=== PATIENT | female | born 1940 | race African-American/Black ===

== ENCOUNTER 2020-02-24 08:51 | Emergency (ER) | payer OTHER ==
[~2020-02-24] VITALS: Ht 165.1 cm; Wt 91.0 kg
[2020-02-24] MEDS ORDERED: MECLIZINE 25MG TABLET PO ONE ×2 (09:15→11:45)
[2020-02-24] MEDS ORDERED: SODIUM CHLORIDE 0.9% 1,000 ML IV ONE (09:15)
[2020-02-24 11:13] LABS: BASOPHILS % 0.9 % (0.0-2.0); HEMATOCRIT. 34.4 % (36.0-48.0); HEMOGLOBIN. 11.3 g/dL (12.0-16.0); LYMPHOCYTES % 21.6 % (20.0-50.0); MEAN CORPUSCULAR HEMOGLOBIN 27.5 pg (28.0-32.0); MEAN CORPUSCULAR VOLUME 83.7 fL (81.0-99.0); MONOCYTES % 6.6 % (2.0-8.0); NEUTROPHILS % 66.9 % (40.0-76.0); PLATELET 185 x1000/uL (130-400); RED BLOOD CELL COUNT 4.11 mill/uL (4.2-5.4); RED CELL DISTRIBUTION WIDTH 14.3 % (11.6-14.6)
[2020-02-24 11:16] LABS: CHLORIDE 102 mEq/L (98-107)
[2020-02-24 11:20] LABS: PROTHROMBIN TIME 10.4 sec (9.6-11.0)
[2020-02-24] MEDS ORDERED: ASPIRIN 325MG EC TABLET PO ONE (11:45)
[2020-02-24] MEDS ORDERED: LORAZEPAM 1MG TABLET PO ONE (12:15)
[2020-02-24 13:05] VITALS: BP 169/75
== END 2020-02-24 13:51 | disposition short-term general hospital (02) ==
LOC: ER 08:51
DX: E11.9 Type 2 diabetes mellitus without complications (principal); I10 Essential (primary) hypertension; Z88.0 Allergy status to penicillin; Z88.1 Allergy status to other antibiotic agents; Z88.3 Allergy status to other anti-infective agents; Z88.6 Allergy status to analgesic agent; Z88.8 Allergy status to other drugs, medicaments and biological substances
CPT/HCPCS: 36415; 70450; 71045; 80053; 85025; 85610; 93005; 96360; 99285; J7030; J8597

== ENCOUNTER 2022-09-18 20:26 | Emergency (ER) | payer OTHER ==
[~2022-09-18] VITALS: Ht 170.2 cm; Wt 87.0 kg
[2022-09-18 20:29] VITALS: O2SAT 100
[2022-09-18 21:00] VITALS: TEMP 98.6
[2022-09-18 22:04] LABS: CLARITY URINE CLEAR (CLEAR); COLOR URINE YELLOW (YELLOW); KETONES URINE NEGATIVE (NEGATIVE); LEUKOCYTE ESTERASE URINE 3+ (NEGATIVE); NITRITE URINE POSITIVE (NEGATIVE); OCCULT BLOOD URINE NEGATIVE (NEGATIVE); PH URINE 5.5 (4.5-8.0); PROTEIN URINE NEGATIVE (NEGATIVE); SPECIFIC GRAVITY URINE 1.008 (1.005-1.030); UROBILINOGEN URINE 0.2 E.U./dL (0.2-1.0)
[2022-09-18 22:38] LABS: EOSINOPHILS % 4.1 % (0.0-5.0); HEMATOCRIT. 32.5 % (36.0-48.0); HEMOGLOBIN. 10.5 g/dL (12.0-16.0); LYMPHOCYTES % 25.1 % (20.0-50.0); MEAN CORPUSCULAR HEMOGLOBIN 26.8 pg (28.0-32.0); MEAN CORPUSCULAR VOLUME 82.7 fL (81.0-99.0); MEAN PLATELET VOLUME 11.3 fl (7.4-10.4); NEUTROPHILS % 62.8 % (40.0-76.0); PLATELET 194 x1000/uL (130-400); RED BLOOD CELL COUNT 3.92 mill/uL (4.2-5.4)
[2022-09-18] MEDS ORDERED: ACETAMINOPHEN 325MG TABLET PO ONE (22:45)
[2022-09-18] MEDS ORDERED: NITROFURANTOIN 100MG M/M CAPSULE PO NR (22:45)
[2022-09-18] MEDS ORDERED: PHENAZOPYRIDINE HCL 100MG TABLET PO ONE (22:45)
[2022-09-18] MEDS ORDERED: NITROFURANTOIN MACROCRYSTAL 25MG CAPSULE PO ONE (22:45)
[2022-09-18 22:48] LABS: CHLORIDE 98 mEq/L (98-107)
[2022-09-18 22:50] LABS: PROTHROMBIN TIME 10.3 sec (9.6-11.0)
[2022-09-19] MEDS ORDERED: NITR100C MT (00:16)
[2022-09-19] MEDS ORDERED: PHEN-815 MT (00:16)
[2022-09-19] MEDS ORDERED: AMLODIPINE 10MG TABLET PO ONE (02:30)
[2022-09-19 02:35] VITALS: BP 191/71; PULSE 85; RESP 18
== END 2022-09-19 02:35 | disposition home or self-care (01) ==
LOC: ER 20:26
DX: N39.0 Urinary tract infection, site not specified (principal); E11.9 Type 2 diabetes mellitus without complications; E78.00 Pure hypercholesterolemia, unspecified; I95.9 Hypotension, unspecified
CPT/HCPCS: 36415; 80053; 81003; 84484; 85025; 87077; 87186; 99284

== ENCOUNTER 2022-09-20 11:35 | Emergency (ER) | payer OTHER ==
[~2022-09-20] VITALS: Ht 165.1 cm; Wt 73.0 kg
[~2022-09-20 11:35] MED LIST: NITR100C MT; PHEN-815 MT
[2022-09-20 11:38] VITALS: O2SAT 99
[2022-09-20] MEDS ORDERED: LEVOFLOXACIN 750MG PREMIX 150 ML IV ONE (12:15)
[2022-09-20 13:16] LABS: BASOPHILS % 0.5 % (0.0-2.0); EOSINOPHILS % 5.8 % (0.0-5.0); HEMATOCRIT. 33.8 % (36.0-48.0); HEMOGLOBIN. 10.6 g/dL (12.0-16.0); LYMPHOCYTES % 14.5 % (20.0-50.0); MEAN CORPUSCULAR HEMOGLOBIN 26.4 pg (28.0-32.0); MEAN CORPUSCULAR VOLUME 84.1 fL (81.0-99.0); MONOCYTES % 6.4 % (2.0-8.0); NEUTROPHILS % 72.8 % (40.0-76.0); RED BLOOD CELL COUNT 4.01 mill/uL (4.2-5.4); RED CELL DISTRIBUTION WIDTH 14.9 % (11.6-14.6)
[2022-09-20 13:19] LABS: CHLORIDE 99 mEq/L (98-107)
[2022-09-20 13:55] LABS: PLATELET 169 x1000/uL (130-400)
[2022-09-20] MEDS ORDERED: SODIUM CHLORIDE 0.9% 1000ML BAG (SEPSIS BOLUS) IV ONE (14:00)
[2022-09-20] MEDS ORDERED: VANCOMYCIN 1G PREMIX 200 ML IV SCH (14:00)
[2022-09-20] MEDS ORDERED: KETOROLAC 15MG/ML VIAL IV ONE ×2 (15:00→16:00)
[2022-09-20] MEDS ORDERED: ONDANSETRON HCL 4MG/2ML INJ IV ONE (16:00)
[2022-09-20 17:41] VITALS: BP 138/55; PULSE 61; RESP 14; TEMP 98
== END 2022-09-20 18:18 | disposition short-term general hospital (02) ==
LOC: ER 11:40
DX: N30.00 Acute cystitis without hematuria (principal); R78.81 Bacteremia; E11.9 Type 2 diabetes mellitus without complications; E78.00 Pure hypercholesterolemia, unspecified; I95.9 Hypotension, unspecified; Z87.440 Personal history of urinary (tract) infections
CPT/HCPCS: 99285; 96365; 96375; 96367; 80053; 83605; 85025; 87040; 36415; 93005; 96376; J1885; J2405; J3370; J1956; J7030

== ENCOUNTER 2022-09-22 19:37 | Inpatient (IN) | payer OTHER ==
[~2022-09-22] VITALS: Ht 139.7 cm; Wt 101.6 kg
[2022-09-22 23:42] LABS: CHLORIDE 98 mEq/L (98-107)
[2022-09-22 23:48] LABS: BASOPHILS % 0.7 % (0.0-2.0); EOSINOPHILS % 8.5 % (0.0-5.0); HEMATOCRIT. 32.7 % (36.0-48.0); HEMOGLOBIN. 10.5 g/dL (12.0-16.0); LYMPHOCYTES % 16.2 % (20.0-50.0); MEAN CORPUSCULAR HEMOGLOBIN 26.9 pg (28.0-32.0); MEAN CORPUSCULAR VOLUME 83.4 fL (81.0-99.0); MEAN PLATELET VOLUME 11.4 fl (7.4-10.4); MONOCYTES % 7.9 % (2.0-8.0); NEUTROPHILS % 66.7 % (40.0-76.0); PLATELET 180 x1000/uL (130-400); RED BLOOD CELL COUNT 3.92 mill/uL (4.2-5.4); RED CELL DISTRIBUTION WIDTH 15.2 % (11.6-14.6)
[2022-09-22 23:49] LABS: PROTHROMBIN TIME 10.3 sec (9.6-11.0)
[2022-09-23] MEDS ORDERED: HYDROCODONE/ACETAMINOPHEN 5/325MG TABLET PO ONE (00:30)
[2022-09-23 01:17] LABS: CLARITY URINE CLEAR (CLEAR); COLOR URINE DARK YELLOW (YELLOW); KETONES URINE NEGATIVE (NEGATIVE); LEUKOCYTE ESTERASE URINE 1+ (NEGATIVE); NITRITE URINE POSITIVE (NEGATIVE); OCCULT BLOOD URINE NEGATIVE (NEGATIVE); PH URINE 6.5 (4.5-8.0); PROTEIN URINE NEGATIVE (NEGATIVE); SPECIFIC GRAVITY URINE 1.009 (1.005-1.030)
[2022-09-23] MEDS ORDERED: ONDANSETRON HCL 4MG/2ML INJ IV ONE (02:00)
[2022-09-23] MEDS ORDERED: MAGNESIUM/ALUMINUM HYDROXIDE/SIMETHICONE 30ML UDC PO PRN (06:15)
[2022-09-23] MEDS ORDERED: GUAIFENESIN 200MG/10ML SUGAR FREE UDC PO PRN (06:15)
[2022-09-23] MEDS ORDERED: DEXTROSE 50% WATER 50ML SYRINGE IV PRN (06:15)
[2022-09-23] MEDS ORDERED: ONDANSETRON HCL 4MG/2ML INJ IV PRN (06:15)
[2022-09-23] MEDS ORDERED: IPRATROPIUM/ALBUTEROL 0.5-3(2.5)MG/3ML NEB HHN PRN (06:15)
[2022-09-23] MEDS ORDERED: DOCUSATE SODIUM 100MG CAPSULE PO PRN (06:15)
[2022-09-23] MEDS ORDERED: CLONIDINE 0.1MG TABLET PO PRN (06:15)
[2022-09-23] MEDS ORDERED: HYDRALAZINE 20MG/ML VIAL IV PRN (07:00)
[2022-09-23] MEDS: DIPHENHYDRAMINE 50MG/ML VIAL IV PRN ×2 (07:08→17:38)
[2022-09-23] MEDS: DEXT 5%/0.9% NACL 1,000 ML IV SCH ×2 (07:08→17:42)
[2022-09-23 07:47] LABS: TOTAL IRON BINDING CAPACITY 385 ug/dL (250-450)
[2022-09-23] MEDS: INSULIN LISPRO 100 UNITS/ML SUBCUT SCH ×4 (08:20→21:08)
[2022-09-23 08:44] LABS: FOLIC ACID (FOLATE) SERUM 13.5 ng/mL (>5.38)
[2022-09-23] MEDS: BLOOD SUGAR DIAGNOSTIC STRIP TEST SCH ×3 (09:17→21:00)
[2022-09-23] MEDS: NITROFURANTOIN 100MG M/M CAPSULE PO SCH ×2 (09:17→21:04)
[2022-09-23] MEDS: AMLODIPINE 5MG TABLET PO SCH (09:17)
[2022-09-23] MEDS: ENOXAPARIN 30MG/0.3ML SYR SUBCUT SCH ×2 (09:18→21:04)
[2022-09-23] MEDS ORDERED: LEVOFLOXACIN 750MG PREMIX 150 ML IV ONE (11:15)
[2022-09-23 12:00] VITALS: BP 145/62; PULSE 59; RESP 18; TEMP 97.5; TEMP 97.6
[2022-09-23] MEDS: PHENAZOPYRIDINE HCL 100MG TABLET PO SCH ×2 (12:07→17:10)
[2022-09-23] MEDS: HYDROCODONE/ACETAMINOPHEN 5/325MG TABLET PO PRN (12:19)
[2022-09-23] MEDS ORDERED: ATOR10TA PO (14:12)
[2022-09-23 16:00] VITALS: BP 139/69; PULSE 58; RESP 18; TEMP 98.6
[2022-09-23] MEDS ORDERED: NALOXONE HCL 0.4MG/ML VIAL IV PRN (17:45)
[2022-09-23 20:00] VITALS: BP 98/55; PULSE 64; RESP 20; TEMP 97.7
[2022-09-24] VITALS: BP 126/60; PULSE 65; RESP 19; TEMP 97.5
[2022-09-24 04:00] VITALS: BP 108/52; PULSE 67; RESP 18; TEMP 97.2
[2022-09-24] MEDS: DEXT 5%/0.9% NACL 1,000 ML IV SCH ×2 (06:17→10:29)
[2022-09-24] MEDS: INSULIN LISPRO 100 UNITS/ML SUBCUT SCH ×2 (06:34→13:37)
[2022-09-24] MEDS: BLOOD SUGAR DIAGNOSTIC STRIP TEST SCH ×2 (06:40→11:40)
[2022-09-24] MEDS: HYDROCODONE/ACETAMINOPHEN 5/325MG TABLET PO PRN (06:56)
[2022-09-24] MEDS: PHENAZOPYRIDINE HCL 100MG TABLET PO SCH ×2 (07:10→12:10)
[2022-09-24 08:00] VITALS: BP 129/63; PULSE 65; RESP 18; TEMP 97.8
[2022-09-24 08:12] LABS: BASOPHILS % 0.6 % (0.0-2.0); EOSINOPHILS % 7.8 % (0.0-5.0); HEMATOCRIT. 29.2 % (36.0-48.0); HEMOGLOBIN. 9.6 g/dL (12.0-16.0); LYMPHOCYTES % 23.1 % (20.0-50.0); MEAN CORPUSCULAR HEMOGLOBIN 27.1 pg (28.0-32.0); MEAN CORPUSCULAR VOLUME 82.4 fL (81.0-99.0); MEAN PLATELET VOLUME 11.5 fl (7.4-10.4); NEUTROPHILS % 59.5 % (40.0-76.0); PLATELET 182 x1000/uL (130-400); RED BLOOD CELL COUNT 3.54 mill/uL (4.2-5.4); RED CELL DISTRIBUTION WIDTH 14.8 % (11.6-14.6)
[2022-09-24 08:18] LABS: CHLORIDE 99 mEq/L (98-107)
[2022-09-24 08:37] LABS: HDL CHOLESTEROL 72 mg/dL (40-59); LDL CHOLESTEROL 66 mg/dL (5-100); T4 FREE 0.99 ng/dL (0.76-1.46)
[2022-09-24] MEDS: ENOXAPARIN 30MG/0.3ML SYR SUBCUT SCH (10:29)
[2022-09-24] MEDS: NITROFURANTOIN 100MG M/M CAPSULE PO SCH (10:29)
[2022-09-24] MEDS: AMLODIPINE 5MG TABLET PO SCH (10:30)
[2022-09-24 11:16] LABS: SODIUM URINE RANDOM 45 mEq/L
[2022-09-24 12:00] VITALS: BP 112/51; PULSE 62; RESP 18; TEMP 97.9
[2022-09-24 12:08] LABS: *AMPHETAMINES SCREEN URINE NEGATIVE (NEGATIVE); *BARBITURATES SCREEN URINE NEGATIVE (NEGATIVE); *BENZODIAZEPINES SCREEN URINE NEGATIVE (NEGATIVE); *COCAINE SCREEN URINE NEGATIVE (NEGATIVE); CANNABINOID URINE SCREEN NEGATIVE (NEGATIVE); METHADONE URINE SCREEN NEGATIVE (NEGATIVE); OPIATES URINE SCREEN PRESUMTIVE POSITIVE (NEGATIVE); PHENCYCLIDINE URINE SCREEN NEGATIVE (NEGATIVE)
[2022-09-24 12:41] VITALS: BP 112/51; PULSE 62; TEMP 97.9; O2SAT 99
== END 2022-09-24 16:15 | disposition home or self-care (01) | DRG 690 ==
LOC: ER 19:37 → 7EST 09-23 04:12
PROVIDERS: ADMIT Hospitalist; ATTEND Hospitalist
DX: N39.0 Urinary tract infection, site not specified (principal); E87.1 Hypo-osmolality and hyponatremia; D64.9 Anemia, unspecified; E11.65 Type 2 diabetes mellitus with hyperglycemia; E78.00 Pure hypercholesterolemia, unspecified; E88.09 Other disorders of plasma-protein metabolism, not elsewhere classified; I10 Essential (primary) hypertension; Z90.710 Acquired absence of both cervix and uterus; Z88.0 Allergy status to penicillin; Z88.5 Allergy status to narcotic agent; Z88.8 Allergy status to other drugs, medicaments and biological substances; Z82.49 Family history of ischemic heart disease and other diseases of the circulatory system; Z88.1 Allergy status to other antibiotic agents; Z88.2 Allergy status to sulfonamides; Z88.3 Allergy status to other anti-infective agents; Z88.6 Allergy status to analgesic agent
CPT/HCPCS: 36415; 74176; 80053; 80061; 80305; 81003; 82607; 82746; 82962; 83036; 83540; 83550; 83605; 83930; 83935; 84295; 84300; 84439; 84443; 84484; 85025; 93970; 99285; J1200; J1650; J1815; J2405; J7042